=== PATIENT | female | born 1995 | race Caucasian/White ===

== ENCOUNTER 2017-02-27 06:12 | Emergency (ER) | payer MEDICAID ==
[2017-02-27 06:42] VITALS: BP 108/66
[2017-02-27] MEDS ORDERED: TRIMOX PO ONE (09:38)
--- NOTE | 2017-02-27 09:39 | Emergency Department Report ---
HPI - General Chief Complaint: Dental/Oral Time Seen by Provider: 02/27/17 09:19 - HPI HPI: Patient is a 21-year-old female who presents here to the ED complaining of left- sided upper dental pain 2 days. Patient states she has not been to the dentist in a while and at some point and had one of her tooth partially broken off. Patient denies any trauma to the face or mouth. Patient describes pain as throbbing and aching in nature and localized to her upper left. Patient also states that her last menstrual period was sometime in December and will like a test. She denies fevers/chills/nausea/vomiting/coughing/shortness of breath/chest pain /diarrhea or any other problems. ED Past Medical Hx - Past Medical History Previous Medical History?: No - Surgical History Past Surgical History?: No - Social History Smoking Status: Current Every Day Smoker Substance Use Type: None - Medications Home Medications: Home Medications Medication Instructions Recorded Confirmed Last Taken Type Amoxicillin [Amoxicillin TAB] 875 mg PO BID #20 tablet 02/27/17 Unknown Rx Ibuprofen [Motrin] 800 mg PO Q8HR PRN #30 tablet 02/27/17 Unknown Rx ED Review of Systems ROS: Stated complaint: TOOTH ACHE Other details as noted in HPI Constitutional: denies: chills, fever Eyes: denies: eye pain, eye discharge, vision change ENT: denies: ear pain, throat pain, dental pain, congestion Respiratory: denies: cough, shortness of breath, wheezing Cardiovascular: denies: chest pain, palpitations Endocrine: no symptoms reported Gastrointestinal: denies: abdominal pain, nausea, diarrhea Genitourinary: denies: urgency, dysuria, discharge Musculoskeletal: denies: back pain, joint swelling, arthralgia Skin: denies: rash, lesions Neurological: denies: headache, weakness, paresthesias Psychiatric: denies: anxiety, depression Hematological/Lymphatic: denies: easy bleeding, easy bruising Physical Exam - Physical Exam Vital Signs: Vital Signs 02/27/17 06:37 Temperature 98 F Pulse Rate 66 Respiratory 18 Rate Blood Pressure 108/66 O2 Sat by Pulse 99 Oximetry Physical Exam: GENERAL: Alert and oriented x3, no apparent distress, Normal Gait, atraumatic. HEAD: Head is normocephalic and a-traumatic. EYES: Extra ocular muscles are intact. Pupils are equal, round, and reactive to light and accommodation. EARS: symetrical, atraumatic, non tender, ear canal clear and moderate cerumen, tympanic membrance non inflamed. gross auditory nml bilaterally. NOSE: Nose symetrical, Nontender,Nares appeared normal. MOUTH:Mouth is well hydrated and without lesions. Tonsils nonerythematous or swollen, Uvula midline, Tongue not elevated. Mucous membranes are moist. Posterior pharynx clear, no exudate or lesions. Patent airways., No gingival enlargement, no bleeding, tenderness to palpation of tooth #14. 214 posture of the broken on the outer aspect of the tooth. Dental caries noted on 214 NECK: Supple. Non edematous, No lymphadenopathy LUNGS: Symetrical with respiration, No wheezing, no rales or crackles, CTAB. HEART: S1, S2 present, regular rate and rhythm without murmur, no rubs, no gallops. Non tender to palpation SKIN: Warm and dry, No lesions, No ulceration or induration present. ED Course Vital Signs 02/27/17 06:37 Temperature 98 F Pulse Rate 66 Respiratory 18 Rate Blood Pressure 108/66 O2 Sat by Pulse 99 Oximetry ED Medical Decision Making - Radiology Data Radiology results: report reviewed - Medical Decision Making 27-year-old female who presents with left-sided Facial pain secondary to odontogenic caries ED course: Patient received 1000 mg of amoxicillin, Odontogenic infection versus ear infection. Based upon history and physical examination, pain is a result of an infection of tooth number 14 and that the pain Pt feels on the right side of his face and towards the ear is referred pain from this infectious process. Pt has no evidence of acute impending airway compromise. At this point, patient will be discharged home on some antibiotics and pain trial, she will do well with an outpatient course of antibiotics. Follow up with the Dental Clinic as referred Vital signs are normal patient is in no acute distress. Pt had an effect uneventful ED stay. Urine test and urinalysis ordered. Urine test negative, urinalysis negative I discussed her results with the patient. Critical care attestation.: If time is entered above; I have spent that time in minutes in the direct care of this critically ill patient, excluding procedure time. ED Disposition Clinical Impression: Dental caries, Pain, dental Disposition: - TO HOME OR SELFCARE Is pt being admited?: No Does the pt Need Aspirin: No Condition: Stable Instructions: Toothache (ED), Dental Caries (ED) Additional Instructions: Make sure to follow up with the primary care physician as discussed. Take all your medications as you've been prescribed. If you have any worsening symptoms or develop new symptoms please return to ED immediately. Prescriptions: Amoxicillin [Amoxicillin TAB] 875 mg PO BID #20 tablet Ibuprofen [Motrin] 800 mg PO Q8HR PRN #30 tablet PRN Reason: Pain Referrals: SARAH WEI II, MD [Primary Care Provider] - 3-5 Days [facility] [Outside] - 3-5 Days [facility] [Outside] - 3-5 Days [facility] [Outside] - 3-5 Days [facility] [Outside] - 3-5 Days Forms: Work/School Release Form(ED) Time of Disposition: 11:37
[2017-02-27 10:52] LABS: Bilirubin,Urine NEG (Negative); Blood,Urine NEG (Negative); Color,Urine Yellow (Yellow); Nitrite,Urine NEG (Negative); Protein,Urine <15 mg/dL mg/dL (Negative); Urobilinogen,Urine < 2.0 mg/dL (<2.0); WBC,Urine < 1.0 /HPF (0.0-6.0)
[2017-02-27 11:02] LABS: HCG Qualitative,Urine Negative (Negative)
== END 2017-02-27 11:51 | disposition home or self-care (01) ==
LOC: ED 06:12
DX: K02.9 Dental caries, unspecified (principal); F17.200 Nicotine dependence, unspecified, uncomplicated
CPT/HCPCS: 81001; 81025; 99283